=== PATIENT | female | born 1980 | race Caucasian/White ===

== ENCOUNTER 2017-10-17 20:32 | Emergency (ER) | payer OTHER ==
[~2017-10-17] VITALS: Ht 162.6 cm; Wt 59.0 kg
[2017-10-17] MEDS ORDERED: SODIUM CHLORIDE 0.9% 1,000 ML IV ONE (22:29)
[2017-10-17] MEDS ORDERED: ONDANSETRON HCL 4MG/2ML VIAL IV STA (22:29)
[2017-10-17 23:45] VITALS: BP 106/66
== END 2017-10-17 23:46 | disposition home or self-care (01) ==
LOC: ER 20:49
DX: F10.229 Alcohol dependence with intoxication, unspecified (principal); F12.10 Cannabis abuse, uncomplicated; Y90.6 Blood alcohol level of 120-199 mg/100 ml; Z87.19 Personal history of other diseases of the digestive system
CPT/HCPCS: 36415; 96374; 99284; G0482; J2405; J7030; Z7610